=== PATIENT | male | born 1975 | race Caucasian/White ===

== ENCOUNTER 2021-05-26 09:06 | Emergency (ER) | payer BC | END 2021-05-26 10:40 | disposition home or self-care (01) | LOC: ERS 09:06 | DX: S91.302A Unspecified open wound, left foot, initial encounter (principal); L03.116 Cellulitis of left lower limb; I10 Essential (primary) hypertension | CPT/HCPCS: 36416; 87070; 87077; 87186; 87205 ==

== ENCOUNTER 2021-07-20 19:00 | Outpatient (CLI) | payer BC | END 2021-07-20 19:01 | disposition home or self-care (01) | LOC: SLEEPLAB 19:00 | PROVIDERS: ATTEND Family Medicine | DX: G47.33 Obstructive sleep apnea (adult) (pediatric) (principal); R53.83 Other fatigue; F32.9 Major depressive disorder, single episode, unspecified; E66.9 Obesity, unspecified; R06.83 Snoring; G47.00 Insomnia, unspecified; G47.10 Hypersomnia, unspecified; I10 Essential (primary) hypertension; Z68.43 Body mass index [BMI] 50.0-59.9, adult | CPT/HCPCS: 95811 ==